=== PATIENT | female | born 1955 | race Asian ===

== ENCOUNTER 2020-02-20 02:23 | Observation (INO) | payer OTHER, SELFPAY ==
--- NOTE | 2020-02-20 03:05 | PDOC.HHP ---
Hospitalist HPI - History of Present Illness Dizziness History of Present Illness: PCP: Dr. Damon The majority of the H&P was taken from the patient's daughter at bedside, along with the ER record. The sludge filtration operator phone was inoperable at the time of the assessment, and the patient does not speak Surinamese. Patient is a 65-year-old female with a past medical history significant for HTN, HLD, DM 2 and peripheral neuropathy that presents to the emergency department as a transfer from [facility] via EMS for the above complaint. Per the patient's daughter, the patient developed the acute onset of dizziness and left-sided headache at approximately 8:00 the evening prior to coming to the emergency department while watching television. Patient reported that "the room was spinning". She denies that she felt like she was going to pass out. Reports that her SBP 200s and a blood glucose of 83. The family gave her glucose tablets. Family reports that she normally has a blood glucose in the 160s. She reports that she has had episodes like this before, usually it is when her blood pressure is high and her blood sugar is low. She reports associated heart palpitations and shortness of breath. The patient denies any recent fall or trauma. She is not on any blood thinners. No recent surgeries. She reports recent ear infection approximately 1 to 2 months ago, treated with antibiotics. Denies ear pain, ear drainage, or fever. Reports starting gabapentin as a new home medication approximately 1 week ago. Has no psychiatric history. Denies any vision changes, difficulty speaking, or focal weakness to her extremities. Denies chest pain and swelling to her lower extremities. Denies cough, wheezing. No history of DVT/PE. No history of COPD/asthma. Denies abdominal pain, nausea, vomiting, hematochezia/melena or diarrhea. She does have chronic constipation, however, her last bowel movement was at the [facility]. Denies any dysuria or hematuria. ED Course: VITAL SIGNS Penny Feb 20, 2020 02:24 ESTHER Rivera Haley BP: 160/92, MAP: 114, Pulse: 93, Resp: 16, Temp: 98.1 (Oral), Pain: 3, O2 sat: 96 on (Room Air), Time: 02/20/2020 02:24. Medication ministration: 1 nitro sublingual Aspirin 1 L normal saline Hospitalist ROS - Review of Systems All other systems reviewed; all pertinent +/- noted in HPI/Subj - Medication Medications: simvastatin Penny Feb 20, 2020 02:39 ESTHER Rivera Haley tablet : Strength - 20 mg : ORAL Patient Dose: 20 mg Oral once a day. Aspirin Low Dose MonFeb 20, 2020 02:40 ESTHER Rivera Haley tablet,delayed release (DR/EC) : Strength - 81 mg : ORAL Patient Dose: 81 mg Oral once a day. glimepiride MonFeb 20, 2020 02:40 ESTHER Rivera Haley tablet : Strength - 4 mg : ORAL Patient Dose: 4 mg Oral once a day (in the morning). gabapentin MonFeb 20, 2020 02:41 ESTHER Rivera Haley capsule : Strength - 400 mg : ORAL Patient Dose: 400 mg Oral 2 times a day. metFORMIN MonFeb 20, 2020 02:41 ESTHER Rivera Haley tablet : Strength - 1,000 mg : ORAL Patient Dose: 1000 mg Oral 2 times a day. captopril MonFeb 20, 2020 02:42 ESTHER Rivera Haley tablet : Strength - 25 mg : ORAL Patient Dose: 25 mg Oral once a day. 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 denies: cerebrovascular accident - Social History Smoking Status: Never smoker Alcohol: reports: None Drugs: reports: none Living Situation: With Family Activity level: independent ambulation - Exam General Appearance: NAD, awake alert. negative: ill appearing Eye: PERRL, anicteric sclera ENT: normocephalic atraumatic, dry oral mucosa Neck: supple, symmetric Heart: RRR, no murmur, no gallops, no rubs, normal peripheral pulses Respiratory: CTAB, no wheezes, no rales, no ronchi, normal chest expansion, no tachypnea Gastrointestinal: soft, non-tender, normal bowel sounds, no bruit, no guarding, no rigidity Gastrointestinal - other findings: Negative Rovsing sign, negative Gee sign Extremities: no cyanosis, no edema Skin: no rashes Neurological: cranial nerve grossly intact, no focal deficits. negative: facial droop, speech deficit Musculoskeletal: normal tone, normal strength Psychiatric: normal affect, A&O x 3 Hospitalist Results - Labs Lab results: Sodium 130, potassium 4.4, chloride 95, CO2 21, BUN 14, creatinine 1.76, glucose 164 WBC 8.9, hematocrit 41.1, hemoglobin 13.7, platelets 236 Troponin 0.011 UA unremarkable LA 2.5 - Radiology Interpretation CT scan - head Status: report reviewed by me Additional Comment: No acute intracranial process. Chest x-ray Status: report reviewed by me Additional Comment: No acute cardiopulmonary process Hospitalist H&P A/P - Problem (1) Dizziness Code(s): R42 - DIZZINESS AND GIDDINESS Status: Acute (2) Hypertensive urgency Code(s): I16.0 - HYPERTENSIVE URGENCY Status: Acute (3) Lactic acidosis Code(s): E87.2 - ACIDOSIS Status: Acute (4) Dehydration Code(s): E86.0 - DEHYDRATION Status: Acute (5) Peripheral neuropathy Code(s): G62.9 - POLYNEUROPATHY, UNSPECIFIED Status: Chronic (6) DM2 (diabetes mellitus, type 2) Status: Chronic Qualifiers: Diabetes mellitus superintendent container terminal insulin use: without superintendent container terminal use (7) HTN (hypertension) Code(s): I10 - ESSENTIAL (PRIMARY) HYPERTENSION Status: Chronic (8) HLD (hyperlipidemia) Code(s): E78.5 - HYPERLIPIDEMIA, UNSPECIFIED Status: Chronic - Plan Plan: 65/F with PMH HTN, HLD, DM 2 presents for dizziness. Admit to stroke unit, observation status. Expected length of stay less than 2 midnights. Presented hypertensive, mild tachycardia, NL RR, SPO2, afebrile. EKG NSR, T wave inversions, nonspecific EKG. CXR no acute cardiopulmonary process CT brain negative for intracranial process Troponin 0.011 LA 2.5, WBC 8.9, NA 130, BG 164 #Dizziness Reports previous episodes with elevated BP. Rule out posterior CVA. NIH 0, modified HINTS exam no deficits. Obtain MRI, US CD, echocardiogram. Consult neurology and physical therapy. Continue aspirin, nitropaste, and start statin. Trend troponins. Check TSH, FLP, mag, UA, folate and B12. Neuro checks. #Hypertensive urgency Likely contributor to problem #1 Reported SBP 200s Currently 160/92. Monitor BP. #Lactic acidosis Presented LA 2.5, NA 130. Given 1 L NS in [facility]. Give maintenance IV fluids. Recheck lactic acid 4 hours. Hold home dose Metformin for now. #Dehydration Maintenance IV fluids. Recheck BMP in the a.m. #Peripheral neuropathy Recently started on gabapentin 1 week prior. We will hold gabapentin for now. #DM2 Reported blood glucose 83 at home. Gave "sugar pills" at home. Presented with blood glucose 163. Hold home dose Metformin and glimepiride. Start intermittent sliding scale. AC/at bedtime checks. #HTN Presented hypertensive. Patient takes ARB at home. Restart home medication when reconciled by nursing. #Hyperlipidemia Presented with LFTs in normal range. No report of myalgias Takes simvastatin at home. We will start statin for now. Obtain FLP. SCDs for DVT prophylaxis. Pepcid for GI prophylaxis. Full code. Contact is her daughter,Kaylin Castellanos at [phone]. Discussed the case with Dr. Galen Luna.
[2020-02-20] MEDS ORDERED: Labetalol HCl 100 MG/20 ML VIAL SLOW IVP PRN ×2 (03:48→03:55)
[2020-02-20] MEDS ORDERED: Nitroglycerin 0.4 MG TAB (25 Tab Bottle) SL PRN (03:51)
[2020-02-20] MEDS ORDERED: HumaLOG 300 UNITS/3 ML VIAL SC PRN ×2 (03:53)
[2020-02-20] MEDS ORDERED: Dextrose 50% Abboject 50 ML SYRINGE SLOW IVP PRN (03:53)
[2020-02-20] MEDS ORDERED: Dextrose 5% in Water 1,000 ML IV PRN (03:53)
[2020-02-20] MEDS ORDERED: Ondansetron ODT 4 MG TAB PO PRN (03:56)
[2020-02-20] MEDS ORDERED: Ondansetron PF 4 MG/2 ML Vial IVP PRN (03:56)
[2020-02-20] MEDS ORDERED: Sodium Chloride 0.9% 1,000 ML IV SCH (04:00)
[2020-02-20] MEDS ORDERED: Nitroglycerin 2% Ointment 1 INCH/1 GM Packet TOP SCH (06:00)
[2020-02-20 06:18] LABS: Troponin I 0.089 ng/mL (< 0.028)
[2020-02-20] MEDS ORDERED: Nitroglycerin 2% Ointment 1 INCH/1 GM Packet ONE (06:24)
[2020-02-20 07:43] LABS: Troponin I 0.084 ng/mL (< 0.028)
--- NOTE | 2020-02-20 08:17 | ULT ---
EXAM: Carotid ultrasound HISTORY: Dizziness COMPARISON: None TECHNIQUE: Multiplanar grayscale and color Doppler images were obtained in a carotid ultrasound. Spec tral analysis of the Doppler waveforms were performed. FINDINGS: No significant plaque is visualized in either internal carotid artery. No significant plaque is seen in either common carotid artery. The Doppler waveforms are normal in the visualized vessels. Peak systolic velocity in the right internal carotid artery 73 cm/s. Peak systolic velocity in the right common carotid artery 68 cm/s. The right ICA/CCA ratio is 1.1. Peak systolic velocity in the left internal carotid artery 62 cm/s. Peak systolic velocity in the left common carotid artery 80 cm/s. The left ICA/CCA ratio is 0.8. Both vertebral arteries demonstrate antegrade flow without focal stenosis IMPRESSION: No evidence of hemodynamically significant stenosis.
[2020-02-20] MEDS ORDERED: Famotidine 20 MG TAB PO SCH (09:00)
[2020-02-20] MEDS ORDERED: Aspirin 325 MG TAB PO SCH (09:00)
[2020-02-20] MEDS ORDERED: Aspirin 81 mg Enteric Coated Tablet PO SCH (09:00)
[2020-02-20] MEDS ORDERED: Famotidine 20 MG TAB ONE (10:02)
[2020-02-20] MEDS ORDERED: Aspirin 325 MG TAB ONE (10:02)
--- NOTE | 2020-02-20 12:36 | MRI ---
MRI BRAIN WITHOUT CONTRAST: Date: 02/20/2020 INDICATION: TIA. FINDINGS: Ventricles have normal size and position. No evidence of restricted diffusion. No mass, infarct, or h emorrhage identified. No significant white matter abnormality. Paranasal sinuses and mastoids are varinder ar. Intracranial internal carotid arteries, proximal cerebral arteries, and basilar arteries show miguel a w-voids. IMPRESSION: Unremarkable MRI brain. POS: [facility]
--- NOTE | 2020-02-20 13:05 | CON ---
NEUROLOGY CONSULTATION DATE OF CONSULTATION: 02/20/2020 REASON FOR CONSULTATION: Episode of dizziness with right-sided weakness. HISTORY OF PRESENT ILLNESS: Ms. Gianna Kong is a 65-year-old female with medical history significant for hypertension, hyperlipidemia, diabetes, and peripheral neuropathy, presented to the emergency department as a transfer from [facility] via EMS because of dizziness and also episode of right-sided weakness, which resolved on its own. Per patient, she developed acute onset dizziness and left-sided headache around 6:30 in evening prior to coming to the emergency room while she was watching television. Per the patient, the room was spinning in front of her eyes and her systolic blood pressure was in 200s and blood glucose was 83. The patient also noticed an episode of right-sided weakness, which resolved on its own. She also complained of shortness of breath and palpitations, but denies any trauma, focal paresthesias, nausea, vomiting, chest pain, abdominal pain, recent illness, or recent sick contacts. In the emergency room, blood pressure was 160/90, pulse 93, respiratory rate 18. She was given one nitroglycerin sublingual, aspirin, and normal saline, and admitted for further evaluation. REVIEW OF SYSTEMS: All systems reviewed and were negative except the pertinent positives and negatives mentioned in the HPI. MEDICATIONS: 1. Simvastatin 20 mg daily. 2. Aspirin 81 mg daily. 3. Glimepiride 4 mg once daily. 4. Gabapentin 400 mg two times daily. 5. Metformin 1000 mg two times daily. 6. Captopril 25 mg daily. ALLERGIES: ACETAMINOPHEN. PAST MEDICAL HISTORY: Hypertension, hyperlipidemia, peripheral neuropathy, diabetes. PAST SURGICAL HISTORY: Cholecystectomy, section, hysterectomy. FAMILY HISTORY: Significant for coronary artery disease. SOCIAL HISTORY: The patient lives with family. Denies smoking, alcohol, or illegal drug use. PHYSICAL EXAMINATION: 160/90, pulse 93, respiratory rate 18. General Appearance: NAD, awake alert. negative: ill appearing Eye: PERRL, anicteric sclera ENT: normocephalic atraumatic, dry oral mucosa Neck: supple, symmetric Heart: RRR, no murmur, no gallops, no rubs, normal peripheral pulses Respiratory: CTAB, no wheezes, no rales, no ronchi, normal chest expansion, no tachypnea Gastrointestinal: soft, non-tender, normal bowel sounds, no bruit, no guarding, no rigidity Gastrointestinal - other findings: Negative Rovsing sign, negative Gee sign Extremities: no cyanosis, no edema Skin: no rashes Neurological: Mental status, the patient is alert and oriented to person, place, and time. Recent and remote memory, intact. Speech is clear. Motor, muscle tone and bulk are normal. Strength 5/5 bilaterally. Sensory intact. Cerebellar, finger-nose testing intact. Gait deferred due to the patient's safety reason. DATA REVIEWED: Sodium 130, potassium 4.4, chloride 95, CO2 21, BUN 14, creatinine 1.76, glucose 164 WBC 8.9, hematocrit 41.1, hemoglobin 13.7, platelets 236 Troponin 0.011 UA unremarkable LA 2.5 - Radiology Interpretation CT scan - head Status: report reviewed by me Additional Comment: No acute intracranial process. Chest x-ray Status: report reviewed by me Additional Comment: No acute cardiopulmonary process ASSESSMENT AND PLAN: (1) Dizziness Code(s): R42 - DIZZINESS AND GIDDINESS Status: Acute (2) Hypertensive urgency Code(s): I16.0 - HYPERTENSIVE URGENCY Status: Acute (3) Lactic acidosis Code(s): E87.2 - ACIDOSIS Status: Acute (4) Dehydration Code(s): E86.0 - DEHYDRATION Status: Acute (5) Peripheral neuropathy Code(s): G62.9 - POLYNEUROPATHY, UNSPECIFIED Status: Chronic (6) DM2 (diabetes mellitus, type 2) Status: Chronic Qualifiers: Diabetes mellitus lace mender insulin use: without lace mender use (7) HTN (hypertension) Code(s): I10 - ESSENTIAL (PRIMARY) HYPERTENSION Status: Chronic (8) HLD (hyperlipidemia) Code(s): E78.5 - HYPERLIPIDEMIA, UNSPECIFIED Status: Chronic Ms. Gianna Kong is consulted for an episode of persistent dizziness with an episode of right-sided weakness, which resolved on its own, in the setting of hypertensive emergency, posterior circulation transient ischemic attack is also on the differential. Consider MRI of the brain, ultrasound carotid Dopplers, and echocardiogram. Permissive control of blood pressure at this time. Strict control of blood glucose. Continue aspirin, start high-intensity statin for secondary stroke prevention. Continue telemetry. PT/OT/speech. Continue medical management per primary team. We will continue to follow. Thank you for the consult. Job ID: [id number] [facility] CENTERRafael
[2020-02-20 13:33] LABS: PTT 28.7 sec (22.9-36.1); Prothrombin Time 13.6 sec (12.0-14.7)
[2020-02-20 13:34] LABS: D-Dimer Test Less than 0.27 *mcg/mL (0.27-0.43)
[2020-02-20 14:01] LABS: Homocysteine 7.15 umol/L (5.08-15.39)
[2020-02-20 14:07] LABS: SARS-CoV-2 MS2 Positive; SARS-CoV-2 N Gene Negative; SARS-CoV-2 S Gene Negative; SARS-CoV-2 by NAA Not Detected (NotDetected); SARS-CoV-2 orf1ab Negative
[2020-02-20 14:15] LABS: HBSAg Index 0.16 S/CO (0-0.99); Hep A IgM AB Non-Reactive (NonReactive); Hep A IgM S/CO 0.24 S/CO (0-0.79); Hep B Surf Ag Non-Reactive S/CO (NonReactive); Hep C IgG Ab Non-Reactive (NonReactive); Hep C Index 0.07 S/CO (0-0.79); Hepatitis B Core IgM Abs Non-Reactive (NonReactive)
[2020-02-20 15:15] LABS: Protein C Activity 101 % (78-152)
--- NOTE | 2020-02-20 16:49 | DIS ---
DATE OF ADMISSION: 02/20/2020 DATE OF DISCHARGE: 02/20/2020 DISCHARGE DISPOSITION: Home. PRIMARY DISCHARGE DIAGNOSES: 1. Dizziness on arrival with hypertensive urgency, resolved. 2. Diabetes mellitus, labile, type 2. SECONDARY DISCHARGE DIAGNOSES: 1. Hypertension. 2. Dyslipidemia. PROCEDURES DONE DURING HOSPITALIZATION: Patient has had carotid Doppler done which did not show any hemodynamically significant stenosis. MRI brain was unremarkable. H and H 13 and 41, platelet count 236; vitamin B12 522, folic acid 16; TSH 1.0. Initial serum sugar was 164. COVID-19 PCR was not detected. Acute hepatitis panel is negative. DISCHARGE MEDICATION: 1. Captopril 25 mg p.o. daily. 2. Gabapentin 400 mg p.o. twice daily. 3. Glimepiride 4 mg p.o. daily. 4. Losartan 50 mg p.o. daily. 5. Metformin 1000 mg p.o. twice daily. 6. Aspirin 81 mg p.o. daily. 7. Lipitor 40 mg p.o. daily. ALLERGIES: TO ACETAMINOPHEN. DISCHARGE PLAN: Patient is to follow up with Dr. Damon, her primary care physician, in 1 week. Patient has been advised to check her fingerstick glucose, blood pressure, and pulse twice daily and record for 10 days to follow up with primary care physician. She is also advised to follow up for lab results, including thrombosis panel and CHRISTI with reflex, which is a send out lab and is pending at present. These were ordered because patient has petechial rash on the lower extremities. Has had prior lesions on her ears to rule out vasculopathy versus rheumatic disease versus rheumatologic disease. BRIEF COURSE DURING HOSPITALIZATION: Patient initially got admitted on the with complaints of dizziness and generalized weakness. Apparently, her sugar was low at home, measuring around 83 mg/dL. Her systolic blood pressures were in the 200s. She initially went to [facility] from where she was transferred here. She has had a complete stroke workup which has been negative for any acute CVA. Prior to discharge, she is ambulating and eating well. She has not had any further dizziness, chest pain, or palpitation. Echo with 2D Doppler is done and the official results are pending. She needs to check fingerstick glucose, blood pressure, and pulse twice daily and record for 10 days to follow up with primary care physician. She is otherwise hemodynamically and neurologically stable. I have given complete updates to the patient and her daughter prior to discharge. Please note, I have seen and examined the patient on the day of discharge. Job ID: [id number]
[2020-02-20] MEDS ORDERED: Atorvastatin Calcium 40 MG TAB PO SCH (21:00)
[2020-02-21 11:18] LABS: Factor VIII Test 147.2 % ACTIVE (56-157); HEX PHOS LA Tube 1 38.9 SEC; HEX PHOS LA Tube 2 36.5 SEC; Hexagonal Phospholipid Neut 2.4 SEC (0-8.0)
--- NOTE | 2020-02-22 16:17 | EKG ---
Test Reason : HTN Blood Pressure : / mmHG Vent. Rate : 094 BPM Atrial Rate : 094 BPM P-R Int : 126 ms QRS Dur : 068 ms QT Int : 366 ms P-R-T Axes : 037 027 054 degrees QTc Int : 457 ms Normal sinus rhythm Low voltage QRS Borderline ECG Confirmed by AMERICO URIAS M.D. ([id number]), assistant production editor ANN LAKHANI ([id number] on 02/22/2020 4:17:19 PM Referred By: Confirmed By:AMERICO URIAS M.D.
[2020-02-26 16:05] LABS: ANA Symphony (Qualitative) Negative (Negative); ANA Symphony (Quantitative) 0.2 Ratio (< 0.7 Negative); Cardiolipin IgA Ab 3.6 APL-U/mL (<14 Negative); Cardiolipin IgG Ab 0.5 GPL-U/mL (<10 Negative); Cardiolipin IgM Ab 9.1 MPL-U/mL (<10 Negative); EliA APS New Method **** NEW METHOD ****; dsDNA IgG Antibody 0.5 IU/mL (<10 Negative)
== END 2020-02-20 16:58 | disposition home or self-care (01) ==
LOC: ERS 02:23 → INTOOBSV 03:49 → ERHOLD 03:49
PROVIDERS: ADMIT Internal Medicine; ATTEND Internal Medicine
DX: I16.0 Hypertensive urgency (principal); I10 Essential (primary) hypertension; E11.10 Type 2 diabetes mellitus with ketoacidosis without coma; E11.42 Type 2 diabetes mellitus with diabetic polyneuropathy; E78.5 Hyperlipidemia, unspecified; E86.0 Dehydration; Z79.82 Long term (current) use of aspirin; Z79.84 Long term (current) use of oral hypoglycemic drugs; Z79.899 Other long term (current) drug therapy; Z88.6 Allergy status to analgesic agent; Z20.828 Contact with and (suspected) exposure to other viral communicable diseases
CPT/HCPCS: 36415; 70551; 80074; 81240; 81241; 82595; 82607; 82746; 83090; 83605; 83735; 84443; 84484; 85240; 85300; 85303; 85305; 85307; 85379; 85598; 85610; 85730; 86038; 86147; 86225; 87635; 93005; 93306; 93880; G0378; U0003